=== PATIENT | female | born 1995 ===

== ENCOUNTER 2024-07-18 17:34 | Emergency (ER) | payer MEDICAID, SELFPAY ==
[2024-07-18 17:42] VITALS: BP 101/68; PULSE 81; RESP 18; TEMP 36.4; O2SAT 99
--- NOTE | 2024-07-18 19:47 | CRLHL7_ITS ---
For Patients: As a result of the Century Cures Act, medical imaging exams and procedure reports are released immediately into your electronic medical record. You may view this report before your referring provider. If you have questions, please contact your health care provider. INDICATION: Pelvic pain. TECHNIQUE: Transvaginal limited obstetric ultrasound examination of the pelvis was performed. Grayscale and color Doppler images were obtained. COMPARISON: None. FINDINGS: Uterus: Normal in echotexture. No suspicious masses. Endometrium: No significant endometrial free fluid. Intrauterine gestation: Yes. Mean sac diameter of 3.6 cm. cardiac activity: Yes. 196 bpm. [place]-rump length: 23 mm. Estimated gestational age of 9 weeks and 0 days. Yolk sac: Normal. Perigestational hemorrhage: No. Estimated sonographic due date: 02/20/2025. Right Ovary: Not visualized limiting its evaluation. Left ovary: Measures 4.3 x 2.9 x 3.0 cm. Simple appearing left ovarian follicle measuring 2.2 cm. No suspicious masses. Normal arterial and venous flow on color Doppler imaging. Cul-de-sac: Small amount of simple appearing pelvic free fluid within the cul-de-sac, possibly physiologic. IMPRESSION: Single viable intrauterine with estimated gestational age of 9 weeks and 0 days by crown-rump length, and estimated due date of 02/20/2025. Dictated by Maxi Moreland MD @ 07/18/2024 9:51:32 PM (Electronically Signed)
--- NOTE | 2024-07-18 19:58 | ED_ITS ---
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 This started earlier today and has gotten progressively worse. Pain in the upper abdomen predominantly in the center but also on the left side radiating to the back. Denies hematuria or dysuria. No vaginal bleeding discharge. Nausea but no vomiting although she says she has had nausea vomiting with prior pregnancies. No cough, chest pain, or shortness of breath. Has not taken anything for symptoms. Related Data Home Medications ?Medication ?Instructions ?Recorded ?Confirmed pren vit comb.1-iron cb-FA-DSS 90 tab PO 07/18/24 mg-1 mg-50 mg tablet Previous Rx's ?Medication ?Instructions ?Recorded famotidine 20 mg tablet (Pepcid) 20 mg PO BID #60 tabs 07/18/24 ondansetron 4 mg disintegrating 4 mg PO Q6H PRN nausea and 07/18/24 tablet vomiting #20 tabs Allergies Allergy/AdvReac Type Severity Reaction Status Date / Time No Known Drug Allergies Allergy Verified 07/18/24 17:51 PFSH PFSH Social History Smoking Status: Never smoker Do you use any of these nicotine containing products: None How often do you have a drink containing alcohol: never AUDIT-C Alcohol total score: 0 Non-prescribed substance use: denies use Exam Narrative: Exam Narrative: General: Well-developed and well-nourished, no acute distress Head: Atraumatic and normocephalic Eyes: Pupils are equal reactive, extraocular motions intact, conjunctiva clear ENT: External nose and ears are normal, posterior pharynx without erythema or exudate Neck: No midline cervical tenderness, full spontaneous range of motion the neck, trachea midline, no adenopathy Heart: Regular rate and rhythm no murmurs or thrills Lungs: Clear to auscultation bilaterally without wheezes or crackles Abdomen: Soft, diffuse upper abdominal tenderness worse in the epigastrium and left upper quadrant, nondistended with active bowel sounds Musculoskeletal: No tenderness, deformity, or edema Neurologic: Awake, alert, and oriented x3, no gross focal neurologic deficits, cranial nerves intact as tested Psych: Mood and affect are appropriate Skin: No rashes Const: Vital Signs, click to edit/add: Vital Signs - 24 hr 07/18/24 17:42 07/18/24 21:50 Temperature 97.5 F L Pulse Rate [Pulse Oximeter] 81 74 Respiratory Rate 18 16 Blood Pressure [Ri ght Upper Arm] 101/68 103/64 Pulse Oximetry 99 98 Oxygen Delivery Me thod Room Air Room Air Course Course ED Course: Patient seen examined, presents today with upper abdominal pain. She is approximately 8 weeks , has not had care yet. On exam here, epigastric and left upper quadrant tenderness along with mild right upper quadrant tenderness. Suspect gastritis, acute pancreatitis or choledocholithiasis also possible. Labs ordered along with right upper quadrant ultrasound, also pelvic ultrasound to verify intrauterine . Zofran, Pepcid, GI cocktail given in the emergency department. Reevaluation(s) Time of Reevaluation #1: 21:51 Reevaluation #1: Labs independently interpreted by me with elevated white blood cell count of 12.9, normal basic panel, elevated AST and ALT but normal bilirubin and normal lipase, urine with ketones and trace blood as well as bilirubin. Right upper quadrant ultrasound demonstrates gallbladder with sludge but no evidence for obstruction, no wall thickening or pericholecystic fluid to suggest acute cholecystitis. Ob ultrasound with intrauterine measuring 9 weeks with EDC 02/20/2025, left ovarian simple cyst but no other acute findings. Patient's symptoms today could be from biliary colic and passed to sludge, however also consider gastritis or mild enteritis. Acute appendicitis is clinically unlikely as there is no specific tenderness in the right abdomen. Patient will be started on Pepcid, Zofran, Tylenol, and follow up with primary care. If pain persists, consider referral to General surgery as well. Time of Reevaluation #2: 22:50 Reevaluation #2: Updated patient with findings and plan, she is feeling better, concerned that she is vomiting quite frequently and we discussed medications for this. Vital Signs Vital signs: Initial Vital Signs Temperature 97.5 F L 07/18/24 17:42 Temperature Source Temporal Artery Scan 07/18/24 17:42 Pulse Rate 81 07/18/24 17:42 Pulse Rhythm Regular 07/18/24 17:42 Pulse Strength 3+ Normal 07/18/24 17:42 Respiratory Rate 18 07/18/24 17:42 Blood Pressure 101/68 07/18/24 17:42 Blood Pressure Mean 79 07/18/24 17:42 Blood Pressure Position Sitting 07/18/24 17:42 Pulse Oximetry 99 07/18/24 17:42 Oxygen Delivery Method Room Air 07/18/24 17:42 Vital Signs Temperature 97.5 F L 07/18/24 17:42 Pulse Rate 81 07/18/24 17:42 Respiratory Rate 18 07/18/24 17:42 Blood Pressure 101/68 07/18/24 17:42 Pulse Oximetry 99 07/18/24 17:42 Oxygen Delivery Method Room Air 07/18/24 17:42 Temperature 97.5 F L 07/18/24 17:42 Pulse Rate 74 07/18/24 21:50 Respiratory Rate 16 07/18/24 21:50 Blood Pressure 103/64 07/18/24 21:50 Pulse Oximetry 98 07/18/24 21:50 Oxygen Delivery Method Room Air 07/18/24 21:50 Medications Administered Medications: Discontinued Medications Generic Name Dose Route Start Last Admin Trade Name Freq PRN Reason Stop Dose Admin Acetaminophen 1,000 mg 07/18/24 21:59 07/18/24 22:06 Acetaminophen 500 Mg Tablet PO 07/18/24 22:00 1,000 mg ONCE ONE Administration Famotidine 20 mg 07/18/24 20:01 07/18/24 20:14 Famotidine 10 Mg/Ml Inj IVP 07/18/24 20:02 20 mg ONCE ONE Administration Lidocaine/Aluminum/Magnesium/Simeth 30 ml 07/18/24 20:01 07/18/24 20:14 Gi Cocktail (Visc Lido/Antacid) 30 Ml PO 07/18/24 20:02 30 ml ONCE ONE Administration Lidocaine/Aluminum/Magnesium/Simeth 15 ml 07/18/24 22:10 07/18/24 22:17 Mag Hydrox/Aluminum Hyd/Simeth 30 Ml Oral.Susp PO 07/18/24 22:11 15 ml ONCE ONE Administration Ondansetron HCl 4 mg 07/18/24 20:01 07/18/24 20:14 Ondansetron 2 Mg/Ml Inj IVP 07/18/24 20:02 4 mg ONCE ONE Administration MDM - Abdominal Pain Lab Data Labs: Lab Results 07/18/24 07/18/24 07/18/24 Range/Units 19:51 19:51 19:51 WBC 12.89 H (4.50-11.00) K/uL RBC 4.58 (4.00-5.20) m/uL Hgb 13.6 (12.0-16.0) gm/dL Hct 40.2 (33.0-51.0) % MCV 88 (80-100) fL MCH 30 (26-34) pg MCHC 34 (32-36) gm/dL RDW Coeff of Luke 13.0 (11.5-15.5) % Plt Count 266 (140-440) K/uL Neut % (Auto) 84.8 H (42.0-72.0) % Lymph % (Auto) 10.9 L (20-44) % [place] % (Auto) 3.9 (0.0-11.0) % Eos % (Auto) 0.0 (0.0-7.0) % Baso % (Auto) 0.2 (0.0-3.0) % Neut # (Auto) 10.90 H (1.7-7.0) K/uL Lymph # (Auto) 1.40 (0.90-2.90) K/uL [place] # (Auto) 0.50 (0.00-0.90) K/UL Eos # (Auto) 0.00 (0.00-0.50) K/uL Baso # (Auto) 0.00 (0.00-0.30) K/uL Abs Immat Gran (auto) 0.00 (0.00-0.30) K/uL Imm/Tot Granulo (auto) 0.2 % Sodium 134 L (135-149) mmol/L Potassium 3.6 (3.6-5.1) mmol/L Chloride 104 (96-114) mmol/L Carbon Dioxide 21 (20-32) mmol/L Anion Gap 9 (7-15) mEq/L BUN 6 (5-24) mg/dL Creatinine 0.6 (0.5-1.5) mg/dL Estimated GFR 125 ml/min Glucose 95 (60-115) mg/dL Calcium 8.9 (8.4-10.6) mg/dL Total Bilirubin 0.7 Cancelled (0.1-1.5) mg/dL Direct Bilirubin 0.4 Cancelled (0.0-0.5) mg/dL AST 51 H (12-35) U/L ALT (4-35) U/L Alkaline Phosphatase (40-150) U/L Total Protein (6.0-8.3) g/dL Albumin (3.3-5.0) g/dL Lipase (23-300) U/L HCG, Quant mIU/mL Urine Color (Yellow) Urine Appearance (Clear) Urine pH (5.0-8.5) Ur Specific [place] (1.000-1.030) Urine Protein (Negative) Urine Glucose (UA) (Negative) Urine Ketones (Negative) Urine Blood (Negative) Urine Nitrite (Negative) Urine Bilirubin (Negative) Urine Urobilinogen (0.2-1.0) Ur Leukocyte Esterase (Negative) Urine RBC (0-2) Urine WBC (0-5) Ur Squamous Epith Cells (None-Few) Amorphous Sediment (None) Urine Bacteria (None) 07/18/24 07/18/24 07/18/24 Range/Units 19:51 19:51 19:51 WBC (4.50-11.00) K/uL RBC (4.00-5.20) m/uL Hgb (12.0-16.0) gm/dL Hct (33.0-51.0) % MCV (80-100) fL MCH (26-34) pg MCHC (32-36) gm/dL RDW Coeff of Luke (11.5-15.5) % Plt Count (140-440) K/uL Neut % (Auto) (42.0-72.0) % Lymph % (Auto) (20-44) % [place] % (Auto) (0.0-11.0) % Eos % (Auto) (0.0-7.0) % Baso % (Auto) (0.0-3.0) % Neut # (Auto) (1.7-7.0) K/uL Lymph # (Auto) (0.90-2.90) K/uL [place] # (Auto) (0.00-0.90) K/UL Eos # (Auto) (0.00-0.50) K/uL Baso # (Auto) (0.00-0.30) K/uL Abs Immat Gran (auto) (0.00-0.30) K/uL Imm/Tot Granulo (auto) % Sodium (135-149) mmol/L Potassium (3.6-5.1) mmol/L Chloride (96-114) mmol/L Carbon Dioxide (20-32) mmol/L Anion Gap (7-15) mEq/L BUN (5-24) mg/dL Creatinine (0.5-1.5) mg/dL Estimated GFR ml/min Glucose (60-115) mg/dL Calcium (8.4-10.6) mg/dL Total Bilirubin (0.1-1.5) mg/dL Direct Bilirubin (0.0-0.5) mg/dL AST Cancelled (12-35) U/L ALT 75 H Cancelled (4-35) U/L Alkaline Phosphatase 76 Cancelled (40-150) U/L Total Protein 7.5 (6.0-8.3) g/dL Albumin (3.3-5.0) g/dL Lipase (23-300) U/L HCG, Quant mIU/mL Urine Color (Yellow) Urine Appearance (Clear) Urine pH (5.0-8.5) Ur Specific [place] (1.000-1.030) Urine Protein (Negative) Urine Glucose (UA) (Negative) Urine Ketones (Negative) Urine Blood (Negative) Urine Nitrite (Negative) Urine Bilirubin (Negative) Urine Urobilinogen (0.2-1.0) Ur Leukocyte Esterase (Negative) Urine RBC (0-2) Urine WBC (0-5) Ur Squamous Epith Cells (None-Few) Amorphous Sediment (None) Urine Bacteria (None) 07/18/24 07/18/24 07/18/24 Range/Units 19:51 19:51 Unknown WBC (4.50-11.00) K/uL RBC (4.00-5.20) m/uL Hgb (12.0-16.0) gm/dL Hct (33.0-51.0) % MCV (80-100) fL MCH (26-34) pg MCHC (32-36) gm/dL RDW Coeff of Luke (11.5-15.5) % Plt Count (140-440) K/uL Neut % (Auto) (42.0-72.0) % Lymph % (Auto) (20-44) % [place] % (Auto) (0.0-11.0) % Eos % (Auto) (0.0-7.0) % Baso % (Auto) (0.0-3.0) % Neut # (Auto) (1.7-7.0) K/uL Lymph # (Auto) (0.90-2.90) K/uL [place] # (Auto) (0.00-0.90) K/UL Eos # (Auto) (0.00-0.50) K/uL Baso # (Auto) (0.00-0.30) K/uL Abs Immat Gran (auto) (0.00-0.30) K/uL Imm/Tot Granulo (auto) % Sodium (135-149) mmol/L Potassium (3.6-5.1) mmol/L Chloride (96-114) mmol/L Carbon Dioxide (20-32) mmol/L Anion Gap (7-15) mEq/L BUN (5-24) mg/dL Creatinine (0.5-1.5) mg/dL Estimated GFR ml/min Glucose (60-115) mg/dL Calcium (8.4-10.6) mg/dL Total Bilirubin (0.1-1.5) mg/dL Direct Bilirubin (0.0-0.5) mg/dL AST (12-35) U/L ALT (4-35) U/L Alkaline Phosphatase (40-150) U/L Total Protein Cancelled (6.0-8.3) g/dL Albumin 3.8 Cancelled (3.3-5.0) g/dL Lipase 60 (23-300) U/L HCG, Quant 851451.00 mIU/mL Urine Color [place] A (Yellow) Urine Appearance Cloudy A (Clear) Urine pH 5.5 (5.0-8.5) Ur Specific [place] >= 1.030 (1.000-1.030) Urine Protein 2+ A (Negative) Urine Glucose (UA) Negative (Negative) Urine Ketones 4+ A (Negative) Urine Blood Trace-lysed A (Negative) Urine Nitrite Negative (Negative) Urine Bilirubin 1+ A (Negative) Urine Urobilinogen 1.0 (0.2-1.0) Ur Leukocyte Esterase Negative (Negative) Urine RBC 0-2 (0-2) Urine WBC 0-2 (0-5) Ur Squamous Epith Cells None (None-Few) Amorphous Sediment Few A (None) Urine Bacteria None (None) Discharge Plan Discharge Clinical Impression: Intrauterine , Abdominal pain during , Biliary sludge determined by ultrasound, Nausea and vomiting during , Gastritis Patient Disposition: Home, Self-Care Condition: Stable Instructions: Biliary Colic (ED), GERD (Gastroesophageal Reflux Disease) (DC), Abdominal Pain in (ED), at 7 to 10 Weeks (ED) Additional Instructions: Take medication as prescribed Follow-up with your primary care doctor this week Activity Level: Activity as Tolerated Discharge Diet: Low Fat/Low Cholesterol Prescriptions: New ondansetron 4 mg tablet,disintegrating 4 mg PO Q6H PRN (Reason: nausea and vomiting) Qty: 20 0RF famotidine [Pepcid] 20 mg tablet 20 mg PO BID Qty: 60 2RF No Action pren vit comb.1-iron cb-FA-DSS 90-1-50 mg tablet PO Follow Up/Referrals: Provider,Not a Local [Primary Care Provider] - Stand Alone Forms: [email or web address] Info Instructions
[2024-07-18 20:01] LABS: Basophils Percent Auto 0.2 % (0.0-3.0); Hematocrit 40.2 % (33.0-51.0); Hemoglobin* 13.6 gm/dL (12.0-16.0); Immature Granulocytes Pct Auto 0.2 %; Lymphocytes Percent Auto 10.9 % (20-44); Mean Corpuscular HGB Conc 34 gm/dL (32-36); Mean Corpuscular Hemoglobin 30 pg (26-34); Mean Corpuscular Volume 88 fL (80-100); Monocytes Percent Auto 3.9 % (0.0-11.0); Neutrophils Percent Auto 84.8 % (42.0-72.0); Platelet Count* 266 K/uL (140-440); Red Blood Count 4.58 m/uL (4.00-5.20); White Blood Count* 12.89 K/uL (4.50-11.00)
--- NOTE | 2024-07-18 20:01 | CRLHL7_ITS ---
For Patients: As a result of the Cures Act, medical imaging exams and procedure reports are released immediately into your electronic medical record. You may view this report before your referring provider. If you have questions, please contact your health care provider. INDICATION: Upper abdominal pain, . TECHNIQUE: Ultrasound abdomen limited. Sonographic images of the right upper quadrant were obtained using [place]-scale and color Doppler images. COMPARISON: None. FINDINGS: Liver: Mildly echogenic liver parenchyma relative to the adjacent right renal cortex. No masses. No intrahepatic biliary dilatation. Gallbladder: Echogenic biliary sludge. No shadowing gallstones. Gallbladder wall thickness normal, measuring 3 mm. No pericholecystic fluid. Common bile duct: 5 mm. Pancreas: Unremarkable. Right kidney: Length 10.4 cm. Normal echotexture and cortex. No masses, stones, or hydronephrosis. Vasculature: Proximal abdominal aorta unremarkable. Main portal vein patent with normal flow toward the liver. IMPRESSION: 1. Biliary sludge with no additional imaging features of acute cholecystitis or abnormal biliary dilatation. 2. Likely mild degree of hepatic steatosis. Dictated by Gaston Louis MD @ 07/18/2024 9:44:30 PM Dictated by: Gaston Louis MD @ 07/18/2024 21:44:38 (Electronically Signed)
[2024-07-18] MEDS: ONDANSETRON 2 MG/ML inj 4 MG IVP (20:14)
[2024-07-18] MEDS: GI COCKTAIL (VISC LIDO/ANTACID) 30 ML PO (20:14)
[2024-07-18] MEDS: FAMOTIDINE 10 MG/ML inj 20 MG IVP (20:14)
[2024-07-18 20:18] LABS: Slide Review Reflex No
[2024-07-18 20:51] LABS: Albumin* 3.8 g/dL (3.3-5.0)
[2024-07-18 20:52] LABS: Chloride* 104 mmol/L (96-114); Potassium* 3.6 mmol/L (3.6-5.1)
[2024-07-18 20:54] LABS: Alanine Aminotransferase* 75 U/L (4-35); Aspartate Amino Transferase* 51 U/L (12-35); Blood Urea Nitrogen* 6 mg/dL (5-24); Carbon Dioxide* 21 mmol/L (20-32); Creatinine* 0.6 mg/dL (0.5-1.5); Estimated Glomerular Filt Rate 125 ml/min
[2024-07-18 20:55] LABS: Alkaline Phosphatase* 76 U/L (40-150); Anion Gap 9 mEq/L (7-15); Bilirubin Direct* 0.4 mg/dL (0.0-0.5); Bilirubin Total* 0.7 mg/dL (0.1-1.5); Calcium* 8.9 mg/dL (8.4-10.6); Glucose* 95 mg/dL (60-115); Lipase* 60 U/L (23-300); Sodium* 134 mmol/L (135-149); Total Protein* 7.5 g/dL (6.0-8.3)
[2024-07-18 21:27] LABS: Glucose Urine Negative (Negative); Leukocyte Esterase Urine Negative (Negative); Nitrite Urine Negative (Negative); RBC Urine 0-2 (0-2); Specific Gravity Urine >= 1.030 (1.000-1.030); WBC Urine 0-2 (0-5); pH Urine 5.5 (5.0-8.5)
[2024-07-18 21:28] LABS: Amorphous Sediment Urine Few
[2024-07-18 21:50] VITALS: BP 103/64; PULSE 74; RESP 16; O2SAT 98
[2024-07-18] MEDS: ACETAMINOPHEN 500 MG TABLET 1000 MG PO (22:06)
[2024-07-18] MEDS: MAG HYDROX/ALUMINUM HYD/SIMETH 30 ML ORAL.SUSP 15 ML PO (22:17)
[2024-07-18 22:54] LABS: Appearance Urine Cloudy (Clear); Bilirubin Urine 1+ (Negative); Blood Urine Trace-lysed (Negative); Color Urine Amber (Yellow); Ketones Urine 4+ (Negative); Protein Urine 2+ (Negative)
== END 2024-07-18 23:22 | disposition home or self-care (01) ==
PROVIDERS: Emergency Provider Family Medicine
DX: O21.9 Vomiting of pregnancy, unspecified (principal); R10.9 Unspecified abdominal pain; K83.8 Other specified diseases of biliary tract; K29.70 Gastritis, unspecified, without bleeding; Z3A.08 8 weeks gestation of pregnancy
CPT/HCPCS: 36415; 76705; 76817; 80048; 80076; 81001; 83690; 84702; 85025; 96374; 96375; 99284; A9270; J2405; S0028

== ENCOUNTER 2024-08-15 11:56 | Emergency (ER) | payer MEDICAID, SELFPAY ==
[2024-08-15] VITALS (15 sets, daily range): BP systolic 87–108; BP diastolic 52–77; PULSE 67–89; RESP 16; TEMP 36.4; O2SAT 98–100
--- NOTE | 2024-08-15 13:05 | ED_ITS ---
HPI - General Adult General Chief complaint: Syncope/Fainted Stated complaint: fainted/weakness - 12wks Time Seen by Provider: 08/15/24 13:05 History of Present Illness HPI narrative: Stated she blacked out this morning, having pain in left side of back and head, before she backed out, she felt tight in her chest, sob, felt like she could not breathe well, vision went magaña/black, went into a cold sweat in face and hands. Does not remember anything after but woke up on the ground, was found by a [place] man. Was standing with her kids waiting for the bus to arrive. Has been vomiting, ran out of the anti nausea medication that was prescribed . Has been keeping liquids down. Third , dx with hyperemesis in Jul, also told she has an inflamed gallbladder at that time. 29-year-old woman presenting to the emergency department following an apparent s yncopal event. Was with her 3-year-old and 5-year-old at the bus stop. She has a text to her 6-8 minutes before she interacted with her phone again. The kids apparently said she looked like she was asleep. No history of seizures. Is being seen about 4 hours after this event. Seen in this department with mildly elevated transaminases and biliary sludge ?inflamed liver? she says really 1 month ago. Has continued to have pain in this area she says. She does not recall an attack of pain before this syncopal event. She does not have headaches. Feels some blurriness of vision around vomiting. Pain in right upper abdomen appears to escalate with the vomiting as well but does not clearly appear to be the reason for nausea. The pain can be triggered by food. No palpitations or irregular heartbeat that she was aware of. Upon discharge last month was given famotidine and Zofran Related Data Home Medications ?Medication ?Instructions ?Recorded ?Confirmed pren vit comb.1-iron cb-FA-DSS 90 tab PO 07/18/24 mg-1 mg-50 mg tablet Previous Rx's ?Medication ?Instructions ?Recorded famotidine 20 mg tablet (Pepcid) 20 mg PO BID #60 tabs 07/18/24 ondansetron 4 mg disintegrating 4 mg PO Q6H PRN nausea and 07/18/24 tablet vomiting #20 tabs ondansetron 4 mg disintegrating 4 mg PO Q4-6H PRN nausea and 08/15/24 tablet vomiting #20 tabs Allergies Allergy/AdvReac Type Severity Reaction Status Date / Time No Known Drug Allergies Allergy Verified 08/15/24 12:32 Review of Systems Status of ROS: Reports: 6 or more systems reviewed and unremarkable except as noted in History and below PFSH PFS Social History Smoking Status: Never smoker Do you use any of these nicotine containing products: None How often do you have a drink containing alcohol: never AUDIT-C Alcohol total score: 0 Non-prescribed substance use: denies use Exam Narrative: Exam Narrative: Pleasant. NAD. Cranial nerves 2-12 intact. There is no nystagmus. Pupils are equal and brisk. Head is atraumatic. Neck is supple nontender. Back nontender. Lungs are clear heart in regular rate and rhythm. Abdomen is soft nontender Extremities are well perfused without edema. Moving all extremities without difficulty and with good strength. Const: Vital Signs, click to edit/add: Vital Signs - 24 hr 08/15/24 12:23 08/15/24 13:25 08/15/24 13:26 Temperature 97.5 F L Pulse Rate 75 86 Pulse Rate [Pulse Oximeter] 89 Pulse Rate [orthos tatic sitting] Pulse Rate [orthos tatic standing] Respiratory Rate 16 Blood Pressure 96/67 Blood Pressure [Ri ght Upper Arm] 98/62 Blood Pressure [or thostatic lying] Blood Pressure [or thostatic sitting] Blood Pressure [or thostatic standing ] Pulse Oximetry 98 99 99 Oxygen Delivery Ny thod Room Air 08/15/24 13:27 08/15/24 13:30 08/15/24 13:31 Temperature Pulse Rate 74 77 79 Pulse Rate [Pulse Oximeter] Pulse Rate [orthos tatic sitting] Pulse Rate [orthos tatic standing] Respiratory Rate Blood Pressure 94/58 L 97/68 Blood Pressure [Ri ght Upper Arm] Blood Pressure [or thostatic lying] Blood Pressure [or thostatic sitting] Blood Pressure [or thostatic standing ] Pulse Oximetry 100 99 99 Oxygen Delivery Me thod 08/15/24 13:45 08/15/24 13:58 08/15/24 13:59 Temperature Pulse Rate 76 80 Pulse Rate [Pulse Oximeter] Pulse Rate [orthos tatic sitting] Pulse Rate [orthos tatic standing] Respiratory Rate Blood Pressure 100/57 L 108/73 Blood Pressure [Ri ght Upper Arm] Blood Pressure [or thostatic lying] Blood Pressure [or thostatic sitting] Blood Pressure [or thostatic standing ] Pulse Oximetry 100 [facility] 14:00 08/15/24 14:15 08/15/24 14:15 Temperature Pulse Rate 79 Pulse Rate [Pulse Oximeter] 78 Pulse Rate [orthos tatic sitting] 67 Pulse Rate [orthos tatic standing] 83 Respiratory Rate Blood Pressure 100/73 Blood Pressure [Ri ght Upper Arm] Blood Pressure [or thostatic lying] 100/54 L Blood Pressure [or thostatic sitting] 108/77 Blood Pressure [or thostatic standing ] 100/73 Pulse Oximetry 100 [facility] 08/15/24 14:30 08/15/24 14:32 08/15/24 14:39 Temperature Pulse Rate 72 71 79 Pulse Rate [Pulse Oximeter] Pulse Rate [orthos tatic sitting] Pulse Rate [orthos tatic standing] Respiratory Rate 16 Blood Pressure 87/52 L 92/60 Blood Pressure [Ri ght Upper Arm] Blood Pressure [or thostatic lying] Blood Pressure [or thostatic sitting] Blood Pressure [or thostatic standing ] Pulse Oximetry 100 100 100 [facility] 08/15/24 16:21 Temperature Pulse Rate Pulse Rate [Pulse Oximeter] 78 Pulse Rate [orthos tatic sitting] Pulse Rate [orthos tatic standing] Respiratory Rate 16 Blood Pressure Blood Pressure [Ri ght Upper Arm] 99/56 L Blood Pressure [or thostatic lying] Blood Pressure [or thostatic sitting] Blood Pressure [or thostatic standing ] Pulse Oximetry [facility] Documenting provider has reviewed patient's vital signs: yes Course Vital Signs Vital signs: Initial Vital Signs Temperature 97.5 F L 08/15/24 12:23 Temperature Source Temporal Artery Scan 08/15/24 12:23 Pulse Rate 89 08/15/24 12:23 Respiratory Rate 16 08/15/24 12:23 Blood Pressure 98/62 08/15/24 12:23 Blood Pressure Mean 74 08/15/24 12:23 Blood Pressure Position Sitting 08/15/24 12:23 Pulse Oximetry 98 08/15/24 12:23 Oxygen Delivery Method Room Air 08/15/24 12:23 Vital Signs Temperature 97.5 F L 08/15/24 12:23 Pulse Rate 89 08/15/24 12:23 Respiratory Rate 16 08/15/24 12:23 Blood Pressure 98/62 08/15/24 12:23 Pulse Oximetry 98 08/15/24 12:23 Oxygen Delivery Method Room Air 08/15/24 12:23 Temperature 97.5 F L 08/15/24 12:23 Pulse Rate 78 08/15/24 16:21 Respiratory Rate 16 08/15/24 16:21 Blood Pressure 99/56 L 08/15/24 16:21 Pulse Oximetry 100 08/15/24 14:39 Oxygen Delivery Method Room Air 08/15/24 12:23 Medications Administered Medications: Discontinued Medications Generic Name Dose Route Start Last Admin Trade Name Freq PRN Reason Stop Dose Admin Sodium Chloride 1,000 mls @ 1,000 mls/hr 08/15/24 13:16 08/15/24 14:25 0.9 % Sodium Chloride 1000 Ml IV 08/15/24 14:15 Infused .Q1H ONE Infusion Ondansetron HCl 4 mg 08/15/24 13:16 08/15/24 13:48 Ondansetron Odt 4 Mg Tab PO 08/15/24 13:17 4 mg ONCE ONE Administration Medical Decision Making MDM Narrative Medical decision making narrative: Would evaluate for evidence of cardiac dysrhythmia. Otherwise it appears that repeated vomiting and possibly a vasovagal event would be contributing here. Does not has symptoms consistent with intracranial abnormality. No regular headaches and no persistent visual changes. She is asymptomatic in her head at this time. Initiating IV fluids and was given a dose of Zofran. Orthostatics done in the middle of IV fluid bolus were WNL. Discussed limited abdominal ultrasound findings with building equipment operator. INDICATION: Right upper quadrant pain TECHNIQUE: Ultrasound abdomen limited. Sonographic images of the right upper quadrant were obtained using arredondo-scale and color Doppler images. COMPARISON: Right upper quadrant ultrasound July 18, 2024 FINDINGS: Liver: Normal in size and echotexture. No masses. No intrahepatic biliary dilatation. Gallbladder: Multiple gallbladder stones are present. No sign of gallbladder wall thickening or pericholecystic fluid. Common bile duct: 4 mm. Pancreas: Obscured by bowel gas. Right kidney: Normal in size. Normal echotexture and cortex. No masses, stones, or hydronephrosis. Vasculature: Proximal abdominal aorta and IVC are normal. IMPRESSION: Cholelithiasis without further evidence of cholecystitis. The remainder of the exam is unremarkable. EKG and labs are reassuring other than ketones in urine not consistent with repeated vomiting. Urinalysis otherwise I would say would be potentially contaminated and would wait for culture results. On reassessment is significantly improved. She feels like she can go home. Did discuss this case with General surgery. Anticipate follow-up with them outpatient. Will try to arrange. See patient discharge plan for further discussion Continue to focus on hydration. I believe some appointments have been made for you for OB. Please follow-up with these. Please call to General surgery Clinic for an appointment to discuss your gallbladder. By now you probably know what foods tend to cause more discomfort; try to avoid these. Higher fat/grease-containing foods might cause more trouble. Sending in a prescription for nausea medication -- Zofran Otherwise return or for marked increase in persistent pain, intractable vomiting, fever. We will also culture your urine and will call you if it appears to require treatment. Contin?e concentr?ndose en la hidrataci?n. Creo que ya le willis programado algunas citas para el examen de obstetricia. Por favor, dionte un seguimiento de las mismas. Por favor, llame a la Cl?gayla de Cir[facility] General para programar myron ignacio para hablar sobre mayers ves?cula biliar. A esta altura, probablemente ya sepa qu? alimentos tienden a causar m?s molestias; trate de evitarlos. Los alimentos con mayor contenido de grasas pueden causar m?s problemas. Enviar myron receta para un medicamento contra las n?useas: Zofran De lo contrario, regrese o si hay un aumento marcado del dolor persistente, v?mitos intratables, fiebre. Tambi?n haremos un cultivo de orina y lo llamaremos si parece que requiere tratamiento. Medical Records Medical records reviewed: Yes I reviewed the patient's medical records Lab Data Lab results reviewed: Yes I reviewed the patient's lab results Labs: Lab Results 08/15/24 08/15/24 08/15/24 Range/Units 13:20 13:32 14:22 WBC 6.23 (4.50-11.00) K/uL RBC 4.26 (4.00-5.20) m/uL Hgb 12.6 (12.0-16.0) gm/dL Hct 36.9 (33.0-51.0) % MCV 87 (80-100) fL MCH 30 (26-34) pg MCHC 34 (32-36) gm/dL RDW Coeff of Luke 12.7 (11.5-15.5) % Plt Count 214 (140-440) K/uL Neut % (Auto) 74.6 H (42.0-72.0) % Lymph % (Auto) 19.7 L (20-44) % [place] % (Auto) 5.0 (0.0-11.0) % Eos % (Auto) 0.2 (0.0-7.0) % Baso % (Auto) 0.3 (0.0-3.0) % Neut # (Auto) 4.60 (1.7-7.0) K/uL Lymph # (Auto) 1.20 (0.90-2.90) K/uL [place] # (Auto) 0.30 (0.00-0.90) K/UL Eos # (Auto) 0.01 (0.00-0.50) K/uL Baso # (Auto) 0.02 (0.00-0.30) K/uL Abs Immat Gran (auto) 0.01 (0.00-0.30) K/uL Imm/Tot Granulo (auto) 0.2 % Sodium 133 L (135-149) mmol/L Potassium 3.6 (3.6-5.1) mmol/L Chloride 105 (96-114) mmol/L Carbon Dioxide 21 (20-32) mmol/L Anion Gap 7 (7-15) mEq/L BUN 5 (5-24) mg/dL Creatinine 0.4 L (0.5-1.5) mg/dL Estimated GFR 138 ml/min Glucose 95 (60-115) mg/dL Calcium 8.9 (8.4-10.6) mg/dL Total Bilirubin 0.6 (0.1-1.5) mg/dL Direct Bilirubin 0.2 (0.0-0.5) mg/dL AST 24 (12-35) U/L ALT 23 (4-35) U/L Alkaline Phosphatase 47 (40-150) U/L Total Protein 6.6 (6.0-8.3) g/dL Albumin 3.5 (3.3-5.0) g/dL Urine Color Yellow (Yellow) Urine Appearance Slightly Cloudy A (Clear) Urine pH 6.5 (5.0-8.5) Ur Specific [place] 1.020 (1.000-1.030) Urine Protein Negative (Negative) Urine Glucose (UA) Negative (Negative) Urine Ketones 4+ A (Negative) Urine Blood Negative (Negative) Urine Nitrite Negative (Negative) Urine Bilirubin Negative (Negative) Urine Urobilinogen 1.0 (0.2-1.0) Ur Leukocyte Esterase 1+ A (Negative) Urine RBC 0-2 (0-2) Urine WBC 5-10 A (0-5) Ur Squamous Epith Cells Moderate A (None-Few) Urine Bacteria Moderate A (None) Urine Mucus Few A (None) SARS-CoV-2 (PCR) Negative SARS-CoV-2 (Negative) Influenza Type A (PCR) Negative PCR FLU A (Negative) Influenza Type B (PCR) Negative PCR FLU B (Negative) RSV (PCR) Negative PCR RSV (Negative) ECG Data Attestation: I personally reviewed and interpreted this ECG as follows: (Normal sinus at 91) Discharge Plan Discharge Clinical Impression: Vasovagal syncope, Dehydration, Cholelithiasis, Right upper quadrant abdominal pain Patient Disposition: Home w/ Parent or Adult Condition: Improved Additional Instructions: Continue to focus on hydration. I believe some appointments have been made for you for OB. Please follow-up with these. Please call to General surgery Clinic for an appointment to discuss your gallbladder. By now you probably know what foods tend to cause more discomfort; try to avoid these. Higher fat/grease-containing foods might cause more trouble. Sending in a prescription for nausea medication -- Zofran Otherwise return or for marked increase in persistent pain, intractable vomiting, fever. We will also culture your urine and will call you if it appears to require treatment. Contin?e concentr?ndose en la hidrataci?n. Creo que ya le willis programado algunas citas para el examen de obstetricia. Por favor, dionte un seguimiento de las mismas. Por favor, llame a la Cl?gayla de Cirug?a General para programar myron ignacio para hablar sobre mayers ves?cula biliar. A esta altura, probablemente ya sepa qu? alimentos tienden a causar m?s molestias; trate de evitarlos. Los alimentos con mayor contenido de grasas pueden causar m?s problemas. Enviar myron receta para un medicamento contra las n?useas: Zofran De lo contrario, regrese o si hay un aumento marcado del dolor persistente, v?mitos intratables, fiebre. Tambi?n haremos un cultivo de orina y lo llamaremos si parece que requiere tratamiento. Prescriptions: New ondansetron 4 mg tablet,disintegrating 4 mg PO Q4-6H PRN (Reason: nausea and vomiting) Qty: 20 0RF No Action pren vit comb.1-iron cb-FA-DSS 90-1-50 mg tablet PO ondansetron 4 mg tablet,disintegrating 4 mg PO Q6H PRN (Reason: nausea and vomiting) Qty: 20 0RF famotidine [Pepcid] 20 mg tablet 20 mg PO BID Qty: 60 2RF Follow Up/Referrals: Provider,Not a Local [Primary Care Provider] - Stand Alone Forms: [facility] Info Instructions
--- NOTE | 2024-08-15 13:16 | CRLHL7_ITS ---
For Patients: As a result of the Century Cures Act, medical imaging exams and procedure reports are released immediately into your electronic medical record. You may view this report before your referring provider. If you have questions, please contact your health care provider. INDICATION: Right upper quadrant pain TECHNIQUE: Ultrasound abdomen limited. Sonographic images of the right upper quadrant were obtained using arredondo-scale and color Doppler images. COMPARISON: Right upper quadrant ultrasound July 18, 2024 FINDINGS: Liver: Normal in size and echotexture. No masses. No intrahepatic biliary dilatation. Gallbladder: Multiple gallbladder stones are present. No sign of gallbladder wall thickening or pericholecystic fluid. Common bile duct: 4 mm. Pancreas: Obscured by bowel gas. Right kidney: Normal in size. Normal echotexture and cortex. No masses, stones, or hydronephrosis. Vasculature: Proximal abdominal aorta and IVC are normal. IMPRESSION: Cholelithiasis without further evidence of cholecystitis. The remainder of the exam is unremarkable. Dictated by Sukumar Llanos MD @ 08/15/2024 2:28:36 PM (Electronically Signed)
[2024-08-15] MEDS: 0.9 % SODIUM CHLORIDE 1000 ml 1,000 ML IV (13:25)
[2024-08-15 13:41] LABS: Basophils Absolute Auto 0.02 K/uL (0.00-0.30); Basophils Percent Auto 0.3 % (0.0-3.0); Eosinophils Absolute Auto 0.01 K/uL (0.00-0.50); Eosinophils Percent Auto 0.2 % (0.0-7.0); Hematocrit 36.9 % (33.0-51.0); Hemoglobin* 12.6 gm/dL (12.0-16.0); Immature Granulocytes Abs Auto 0.01 K/uL (0.00-0.30); Immature Granulocytes Pct Auto 0.2 %; Lymphocytes Percent Auto 19.7 % (20-44); Mean Corpuscular HGB Conc 34 gm/dL (32-36); Mean Corpuscular Hemoglobin 30 pg (26-34); Mean Corpuscular Volume 87 fL (80-100); Neutrophils Percent Auto 74.6 % (42.0-72.0); Platelet Count* 214 K/uL (140-440); RDW Coefficient of Variation % 12.7 % (11.5-15.5); Red Blood Count 4.26 m/uL (4.00-5.20); White Blood Count* 6.23 K/uL (4.50-11.00)
[2024-08-15 13:42] LABS: Slide Review Reflex No
[2024-08-15] MEDS: ONDANSETRON ODT 4 MG TAB PO (13:48)
[2024-08-15 13:50] LABS: Albumin* 3.5 g/dL (3.3-5.0); Chloride* 105 mmol/L (96-114); Potassium* 3.6 mmol/L (3.6-5.1); Sodium* 133 mmol/L (135-149)
[2024-08-15 13:52] LABS: Anion Gap 7 mEq/L (7-15); Carbon Dioxide* 21 mmol/L (20-32); Creatinine* 0.4 mg/dL (0.5-1.5); Estimated Glomerular Filt Rate 138 ml/min
[2024-08-15 13:53] LABS: Alanine Aminotransferase* 23 U/L (4-35); Alkaline Phosphatase* 47 U/L (40-150); Aspartate Amino Transferase* 24 U/L (12-35); Bilirubin Direct* 0.2 mg/dL (0.0-0.5); Bilirubin Total* 0.6 mg/dL (0.1-1.5); Blood Urea Nitrogen* 5 mg/dL (5-24); Calcium* 8.9 mg/dL (8.4-10.6); Glucose* 95 mg/dL (60-115); Total Protein* 6.6 g/dL (6.0-8.3)
[2024-08-15 14:35] LABS: Appearance Urine Slightly Cloudy (Clear); Bilirubin Urine Negative (Negative); Blood Urine Negative (Negative); Color Urine Yellow (Yellow); Glucose Urine Negative (Negative); Ketones Urine 4+ (Negative); Leukocyte Esterase Urine 1+ (Negative); Nitrite Urine Negative (Negative); Protein Urine Negative (Negative); pH Urine 6.5 (5.0-8.5)
[2024-08-15 14:48] LABS: Bacteria Urine Moderate; Mucus Urine Few; RBC Urine 0-2 (0-2); Squamous Epithelial Cell Urine Moderate (None-Few)
[2024-08-15 14:52] LABS: PCR FLU A Negative PCR FLU A (Negative); PCR FLU B Negative PCR FLU B (Negative); PCR RSV Negative PCR RSV (Negative); SARS PCR* Negative SARS-CoV-2 (Negative)
== END 2024-08-15 16:22 | disposition home or self-care (01) ==
PROVIDERS: Emergency Provider Family Medicine
DX: K80.20 Calculus of gallbladder without cholecystitis without obstruction (principal); E86.0 Dehydration
CPT/HCPCS: 36415; 76705; 80048; 80076; 81001; 85025; 87086; 87631; 99284; T1013; A9270; J7030

== ENCOUNTER 2024-08-22 16:44 | Outpatient (CLI) | payer MEDICAID, SELFPAY ==
--- NOTE | 2024-08-22 16:45 | CRLHL7_ITS ---
For Patients: As a result of the Century Cures Act, medical imaging exams and procedure reports are released immediately into your electronic medical record. You may view this report before your referring provider. If you have questions, please contact your health care provider. INDICATION: dating and viability COMPARISON: 07/18/2024 TECHNIQUE: Real-time arredondo-scale imaging of the pelvis was performed. FINDINGS: heart rate 157 beats per minute. Sonographic gestational age 14 weeks 4 days and sonographic due date of 02/16/2025. BPD 2.7 cm, 14 weeks 6 days, 97th percentile. HC 10.3 cm, 14 weeks 6 days, 97th percentile. AC 8.4 cm, 14 weeks 5 days, 95th percentile. FL 1.4 cm, 14 weeks 0 days, 78th percentile. IMPRESSION: Gestational age calculated at 14 weeks 4 days with a sonographic due date of 02/16/2025. Dictated by Javon Villavicencio MD @ 08/23/2024 12:55:29 PM (Electronically Signed)
== END 2024-08-22 16:45 | disposition home or self-care (01) ==
LOC: US 16:44
PROVIDERS: Visit Provider Registered Nurse
DX: Z34.92 Encounter for supervision of normal pregnancy, unspecified, second trimester (principal); Z3A.14 14 weeks gestation of pregnancy
CPT/HCPCS: 76815; T1013

== ENCOUNTER 2024-08-23 14:12 | Outpatient (CLI) | payer MEDICAID, SELFPAY ==
[2024-08-23 21:54] LABS: Chlamydia DNA Amplified* NOT DETECTED (No Detected); GC DNA Amplified* NOT DETECTED (No Detected)
[2024-08-31 05:48] LABS: HPV Source Cervix; HPV, High Risk by TMA Not Detected
== END 2024-08-23 14:13 | disposition home or self-care (01) ==
PROVIDERS: Visit Provider Registered Nurse
DX: Z34.92 Encounter for supervision of normal pregnancy, unspecified, second trimester (principal); Z3A.14 14 weeks gestation of pregnancy
CPT/HCPCS: 83020; 83021; 85660; 86592; 86703; 86704; 86706; 86762; 86787; 86803; 86850; 86900; 86901; 87086; 87340; 87491; 87591; 87624; 87625; 88141; 88142

== ENCOUNTER 2024-09-04 11:44 | Day surgery (SDC) | payer MEDICAID, SELFPAY ==
[2024-09-04] VITALS (12 sets, daily range): BP systolic 89–109; BP diastolic 50–64; PULSE 70–110; RESP 14–16; TEMP 36.3–36.6; O2SAT 96–100; BMI 25.9
--- NOTE | 2024-09-04 12:08 | SUR.PREOP ---
OB RN in room to do heart tones. Reported FHT 140s-150s
[2024-09-04] MEDS: LACTATED RINGERS 1000 ML 1,000 ML 100 ML IV ×2 (12:10→13:27)
--- NOTE | 2024-09-04 12:11 | SUR.PREOP ---
RN was called to pt bedside to do preoperative heart tones. FHR was audible at 145-152 no audible decelerations noted. FHR was listening to for 45 seconds. Pt is 15 weeks .
[2024-09-04] MEDS: SODIUM CHLORIDE 0.9 % (FLUSH) 10 ML SYRINGE IVF (12:15)
--- NOTE | 2024-09-04 12:44 | W.PM.H&PU ---
History & Physical Update History & Physical Update H&P Reviewed and patient assessed: No changes noted
[2024-09-04] MEDS: CEFAZOLIN 2 GM INJ IVP (13:05)
[2024-09-04] MEDS: BUPIVACAINE 0.5% 30 ML INJECTION (13:50)
--- NOTE | 2024-09-04 14:06 | PM.GSPRC ---
Operative Note Date of procedure: 09/04/24 Pre-op diagnosis: biliary colic Post-op diagnosis: same Type of Procedure: laparoscopic cholecystectomy Indications: Patient is a 29-year-old female, currently in the 2nd trimester, who presented to clinic with clinical workup and symptoms consistent with biliary colic versus chronic cholecystitis. Different treatment options were discussed, including observation with patient electing to proceed with operative intervention. Risks and benefits of operative intervention were discussed at length with the patient. Risks included but was not limited to: Bleeding, infection, risk of damage to surrounding structures, possible need for additional procedures, [possible need to convert to an open operation] and postoperative complications such as pneumonia, pulmonary emboli or NH. All questions and concerns were addressed with the patient agreeing to proceed. Procedure Description: After discussing the risks and benefits of the procedure, the patient signed informed consent.? The operative site was marked and the patient was brought to the operating room and placed on the operating table in supine position.? Care was taken to pad the patient's pressure points.?? The patient was then intubated by anesthesia.?? The operative site was then prepped and draped in the usual sterile fashion.? A time-out was then performed. Entrance to the abdomen was gained via a 5 mm Visiport in the left upper quadrant. The abdomen was insufflated and briefly surveyed for signs of injury. There was none. The uterus was consistent with a current , within the pelvis and outside the operative field. An 11 mm umbilical port was placed as well as 2 working ports along the right costal margin. Patient was then placed in reverse Trendelenburg position with the right side up. The gallbladder fundus was grasped and retracted cephalad. The infundibulum was grasped. A combination of hook cautery and blunt dissection was used to carefully dissect out the cystic duct and artery until they could clearly be seen entering the gallbladder without any intervening structures. The gallbladder was dissected off the cystic plate to achieve the critical view. Once this was achieved the cystic duct and artery were each clipped with 2 clips proximally and 1 clip distally and transected with the scissors. The gallbladder was then taken off of the liver bed. A large posterior vessel high on the body of the gallbladder was seen, this was clipped with 2 clips proximallt, 1 cip distally and transected. The gallbladder was then completely taken off of the liver bed and removed from the abdomen using an Endo-Catch bag. The gallbladder bed was surveyed for hemostasis and excellent. The ports were then removed under direct vision. The umbilical port fascia was closed with 0 Vicryl. The skin was closed with absorbable subcuticular suture. Instrument sponge and needle counts were correct at the end of the case. The patient was then woken and transferred to the PACU in stable condition. Findings: Normal appearing gallbladder Anesthesia: GETA Surgeon: Unique Olivier MD Estimated blood loss (mL): 5 Specimen: Gallbladder Condition: stable Disposition: PACU
--- NOTE | 2024-09-04 14:12 | P.ANES_ITS ---
Anesthesia Charges Start Date/Time Anesthesia Start Date: 09/04/24 Anesthesia Start Time: 12:50 Stop Date/Time Anesthesia Stop Date: 09/04/24 Anesthesia Stop Time: 14:09 Coding CPT Codes CPT Codes: ANESTH SURG UPPER ABDOMEN - 79309 ([id number]) P2 - PATIENT W/MILD SYST DISEASE, QX - ORGAN GRINDER SVC W/ MD MED DIRECTION, QK - HOME HEALTH CLINICIAN 2-4 CNCRNT ANES PROC
--- NOTE | 2024-09-04 14:12 | W.ANESCHARGE ---
Anesthesia Charges Start Date/Time Anesthesia Start Date: 09/04/24 Anesthesia Start Time: 12:50 Stop Date/Time Anesthesia Stop Date: 09/04/24 Anesthesia Stop Time: 14:09 Coding CPT Codes CPT Codes: ANESTH SURG UPPER ABDOMEN - 71126 ([id number]) P2 - PATIENT W/MILD SYST DISEASE, QX - CAREER SERVICES COORDINATOR SVC W/ MD MED DIRECTION, QK - BAKER BREAD 2-4 CNCRNT ANES PROC
--- NOTE | 2024-09-04 14:19 | SUR.PHASEI ---
FHR doptones completed in PACU. 140-145
[2024-09-04] MEDS: HYDROCODONE-ACETAMIN 5-325 MG 1 TAB PO (14:48)
--- NOTE | 2024-09-04 15:05 | P.ANES_ITS ---
Anesthesia Charges Start Date/Time Anesthesia Start Date: 09/04/24 Anesthesia Start Time: 12:50 Stop Date/Time Anesthesia Stop Date: 09/04/24 Anesthesia Stop Time: 14:09 Coding CPT Codes CPT Codes: ANESTH SURG UPPER ABDOMEN - 17114 ([id number]) QK - RECEIVING MANAGER 2-4 CNCRNT ANES PROC, QX - PRICING COORDINATOR SVC W/ MD MED DIRECTION, P2 - PATIENT W/MILD SYST DISEASE
--- NOTE | 2024-09-04 15:05 | W.ANESCHARGE ---
Anesthesia Charges Start Date/Time Anesthesia Start Date: 09/04/24 Anesthesia Start Time: 12:50 Stop Date/Time Anesthesia Stop Date: 09/04/24 Anesthesia Stop Time: 14:09 Coding CPT Codes CPT Codes: ANESTH SURG UPPER ABDOMEN - 82495 ([id number]) QK - DRAG SEINER 2-4 CNCRNT ANES PROC, QX - FOOD AND NUTRITION TEACHER SVC W/ MD MED DIRECTION, P2 - PATIENT W/MILD SYST DISEASE
== END 2024-09-04 15:47 | disposition home or self-care (01) ==
PROVIDERS: PCP Registered Nurse; Visit Provider Surgery
PROC: 0FT44ZZ Resection of Gallbladder, Percutaneous Endoscopic Approach (ICD-10-PCS; CPT 47562; principal; 2024-09-04 13:00)
DX: K81.1 Chronic cholecystitis (principal)
CPT/HCPCS: 47562; 00790; 88304; T1013; A9270; J0330; J0665; J0690; J1100; J1200; J2250; J2371; J2405; J2704; J2710; J2765; J3010; J7120

== ENCOUNTER 2024-10-05 13:04 | Outpatient (CLI) | payer MEDICAID, SELFPAY | END 2024-10-05 13:05 | disposition home or self-care (01) | PROVIDERS: PCP Registered Nurse; Visit Provider Obstetrics & Gynecology | DX: Z34.92 Encounter for supervision of normal pregnancy, unspecified, second trimester (principal); Z3A.20 20 weeks gestation of pregnancy | CPT/HCPCS: 76805; J1171 ==

== ENCOUNTER 2024-11-15 09:31 | Outpatient (CLI) | payer MEDICAID, SELFPAY | END 2024-11-15 09:32 | disposition home or self-care (01) | LOC: US 09:32 | PROVIDERS: PCP Registered Nurse; Visit Provider Obstetrics & Gynecology | DX: O26.892 Other specified pregnancy related conditions, second trimester (principal); N28.89 Other specified disorders of kidney and ureter; Q63.2 Ectopic kidney; Z3A.26 26 weeks gestation of pregnancy | CPT/HCPCS: 76811; T1013 ==

== ENCOUNTER 2024-12-01 11:15 | Outpatient (CLI) | payer MEDICAID, SELFPAY | END 2024-12-01 11:16 | disposition home or self-care (01) | LOC: NFLDREF 12-04 03:58 | PROVIDERS: PCP Registered Nurse; Referring Provider Registered Nurse; Visit Provider Obstetrics & Gynecology | DX: Z34.83 Encounter for supervision of other normal pregnancy, third trimester (principal) | CPT/HCPCS: 86592 ==

== ENCOUNTER 2024-12-27 12:46 | Outpatient (CLI) | payer MEDICAID, SELFPAY | END 2024-12-27 12:47 | disposition home or self-care (01) | PROVIDERS: PCP Registered Nurse; Visit Provider Obstetrics & Gynecology | DX: O35.EXX0 Maternal care for other (suspected) fetal abnormality and damage, fetal genitourinary anomalies, not applicable or unspecified (principal); Z3A.32 32 weeks gestation of pregnancy | CPT/HCPCS: 76816; T1013 ==

== ENCOUNTER 2025-01-12 12:40 | Outpatient (CLI) | payer MEDICAID, SELFPAY | END 2025-01-12 12:41 | disposition home or self-care (01) | LOC: NFLDREF 01-13 10:32 | PROVIDERS: PCP Registered Nurse; Referring Provider Registered Nurse; Visit Provider Obstetrics & Gynecology | DX: Z34.93 Encounter for supervision of normal pregnancy, unspecified, third trimester (principal); Z3A.34 34 weeks gestation of pregnancy | CPT/HCPCS: 82728 ==

== ENCOUNTER 2025-01-24 10:45 | Outpatient (CLI) | payer MEDICAID, SELFPAY | END 2025-01-24 10:46 | disposition home or self-care (01) | LOC: NFLDREF 01-28 02:17 | PROVIDERS: PCP Registered Nurse; Referring Provider Registered Nurse; Visit Provider Obstetrics & Gynecology | DX: O35.EXX0 Maternal care for other (suspected) fetal abnormality and damage, fetal genitourinary anomalies, not applicable or unspecified (principal); Z3A.36 36 weeks gestation of pregnancy | CPT/HCPCS: 87081; 87653 ==

== ENCOUNTER 2025-01-26 08:54 | Outpatient (RCR) | payer MEDICAID, SELFPAY ==
[2025-01-26] MEDS: IRON DEXTRAN COMPLEX 25 MG in 0.9 % SODIUM CHLORIDE 100 ml 100 ML 402 MG IVPB (09:45)
[2025-01-26 10:06] VITALS: BP 96/62; RESP 16; TEMP 36.3; O2SAT 98
[2025-01-26] MEDS: IRON DEXTRAN COMPLEX 975 MG in 0.9 % SODIUM CHLORIDE 250 ml 250 ML 270 MG IVPB (10:54)
[2025-01-26 12:03] VITALS: BP 98/63; PULSE 98; RESP 16; TEMP 36.2; O2SAT 98
[2025-01-26 12:37] VITALS: BP 99/64; PULSE 80; RESP 16; TEMP 36.2; O2SAT 98
== END 2025-07-25 23:59 | disposition home or self-care (01) ==
LOC: CCIC 08:54
PROVIDERS: PCP Registered Nurse; Referring Provider Obstetrics & Gynecology; Visit Provider Clinical Nurse Specialist
DX: O99.013 Anemia complicating pregnancy, third trimester (principal); D50.9 Iron deficiency anemia, unspecified
CPT/HCPCS: 96365; T1013; J1750; J7050

== ENCOUNTER 2025-01-31 13:35 | Outpatient (CLI) | payer MEDICAID, SELFPAY | END 2025-01-31 13:36 | disposition home or self-care (01) | LOC: US 13:36 | PROVIDERS: PCP Registered Nurse; Visit Provider Obstetrics & Gynecology | DX: O35.EXX0 Maternal care for other (suspected) fetal abnormality and damage, fetal genitourinary anomalies, not applicable or unspecified (principal); Z3A.37 37 weeks gestation of pregnancy | CPT/HCPCS: 76816; T1013 ==

== ENCOUNTER 2025-02-13 11:43 | Outpatient (CLI) | payer MEDICAID, SELFPAY ==
[2025-02-13 12:12] VITALS: BP 104/62; PULSE 82; PULSE 84; TEMP 36.6; O2SAT 95
[2025-02-13 12:49] LABS: Amnisure Rom* Negative
--- NOTE | 2025-02-13 13:02 | CRLHL7_ITS ---
For Patients: As a result of the Cures Act, medical imaging exams and procedure reports are released immediately into your electronic medical record. You may view this report before your referring provider. If you have questions, please contact your health care provider. OB ULTRASOUND FOLLOW-UP/LIMITED, 02/13/2025 CLINICAL HISTORY: Check RADHA. COMPARISON: 01/31/2025, 12/27/2024, 11/15/2024. TECHNIQUE: Real time arredondo scale imaging of the fetus was performed. Transabdominal imaging performed. FINDINGS: IVONE by US: 02/20/2025. GA: 39 weeks 0 days. Gestation: Single. Cervix: Not visualized. Positioning: Vertex. Amniotic Fluid: 13.5 cm RADHA. 7.6 cm SDP. Placenta: Technique: TA. Placenta Position: Posterior. Dopplers: Heart Rate: 144 bpm. IMPRESSION: Amniotic fluid single deepest pocket 7.6 cm. RADHA 13.5 cm. Javon Villavicencio M.D. Diagnostic Radiologist [email or web address] Transcribed: 1:55 pm DW/Dictated by: Javon Villavicencio MD @ 02/13/2025 1:36:00 PM (Electronically Signed)
--- NOTE | 2025-02-13 14:01 | PC.OBNST ---
NST Note NST Note Start: 02/13/25 11:54 Freq: ONCE Status: Active Protocol: Document 02/13/25 11:54 MMS (Rec: 02/13/25 14:00 MMS No Response) NST Note 3 Para (# of births) 2 EDC 02/20/25 Gestational Age In 39 Weeks & 0 Days Weeks & Days Patient Presented Leaking fluid with Complaint(s) of Reactive Yes Appropriate for Yes Gestational Age JOSE Heredia,RN Date 02/13/25 Reactive Yes Appropriate for Yes Gestational Age JOSE Domínguez RN Date 02/13/25 OB NST charge Yes Complete NST Note Yes via Write Note The provider's electronic signature indicates the NST is reactive/appropriate for gestational age. *Note to provider: If an addendum is required, open the patient's chart and click on the note under the Nurse/Allied Health tab.
== END 2025-02-13 13:31 | disposition home or self-care (01) ==
LOC: OB OUT 11:44 → OB 11:45
PROVIDERS: PCP Registered Nurse; Visit Provider Obstetrics & Gynecology
DX: O47.1 False labor at or after 37 completed weeks of gestation (principal); Z3A.39 39 weeks gestation of pregnancy
CPT/HCPCS: 59025; 76815; 84112; G0463; T1013

== ENCOUNTER 2025-02-18 07:24 | Inpatient (IN) | payer MEDICAID, SELFPAY ==
[2025-02-18] VITALS (24 sets, daily range): BP systolic 92–120; BP diastolic 50–77; PULSE 75–96; RESP 16; TEMP 36.6–36.9; O2SAT 97–99; BMI 30.6
--- NOTE | 2025-02-18 08:28 | W.PM.LDBA ---
Subjective History of Present Illness Time Seen by Provider: 08:28 Date Seen: 02/18/25 Narrative: Naa is being admitted to Labor and Delivery for induction of labor, elective due to history of macrosomia also her spouse only have the weekend off of work so this is a social indication. She is a 29 year old at 39 and 5/7 weeks gestation. Her full history and physical was dictated by Dr. Moreland on 02/08/2025. Please see this for details. She is a Setswana speaker and a sample paster was available at the time of admission for this visit. She reports that she started having nonpainful contractions yesterday that have continued overnight. She is hoping that we can progress to Pitocin and AROM rather than starting with cervical ripening as result of the contractions. No leaking fluid or vaginal bleeding. Notes that her baby has been moving but has slightly decreased the amount of movement since she started having contractions yesterday Specific Issues/Plans G 3 P 2001 Partner (spouse): Yunier Amaodrmukesh Yun. Sons: Yannick Willingham. Baby: Boy! [place] Setswana-speaking H&P: By Dr. Moreland on 02/08/25 # Anemia at 28wks: hgb 9.8 Start OTC Ferrous sulfate QOD Recheck hgb at 34wks: 9.3 Iron infusion ordered 01/12/25 # History of macrosomic babies at 40w and 40w3d. 12.8 lb and 10.1 lb. Vaginal x 2. Episiotomy x 2. Denies history of gestational diabetes. Delivered in [place], do not have records. Hemoglobin A1c 5.5% 1hr GTT 12/01/24:100 Consider third-trimester growth ultrasound Desires elective IOL on 02/16/25 - ripening with cook on 02/15 #On FAS: L kidney malrotated, Bilateral renal pelvis dilation: L 8mm, R 4mm [facility] referral scheduled on 11/15/24 [facility] 11/15/24 - Mild bilateral pyeletasis (UTD A1) is noted today and the left kidney appears inferiorly displaced lower in the renal fossa. 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 F/u with MFM at 36 weeks Recommended referral to pediatric urology at this time (during ) to arrange for consultation to discuss follow up. Also recommend notification of baby's prevention coordinator regarding this finding. US is typically indicated within the first several weeks of life and thus should be arranged prenatally. Delivery is anticipated per routine obstetric indication at [facility] at this time. # Transportation issues. #HepB non immune [x] vaccine given 09/13 - just 1x booster needed as pt reports she received the series as a child # 09/04/2024 L/S cholecystectomy at 15w6d by Dr. Olivier # Considering sterilization Federal tubal consent signed 12/01/24 Imagin. 10/05/24: Single, live intrauterine . Variable presentation. Post placenta w/o previa. Cervix 4.1cm. Normal anatomy with the exception of malrotation of the L kidney and bilateral pelvis dilation: L 8mm, R 4mm. MFM referral. 12/27/24: repeat US with MFM: Resolved right UTDA1. However there is evidence of persistent malposition of the left kidney; it appears within the renal fossa however significantly rotated 90 degrees. There is persistent UTDA1 of the left kidney with the left renal pelvis measuring 7.9 mm. EFW 62.7%, AC 66.8%. SDP 5.8 cm. Vaccinations: Flu: Declined Covid: Declined Tdap: 12/15/24 GBS Negative 32 week mental health: PHQ-9 1; CLINT-7 0 Last pap 08/23/24: WNL, HPV(-) OB - Problem Based A/P Additional Plan (1) Encounter for induction of labor: Status: Acute Plan 1. Pitocin per induction protocol. 2. GBS status: Negative she does not require prophylactic antibiotics. 3. Blood type A positive 4. The patient has a history of anemia and with her last hemoglobin on 01/12/25: 9.3. She underwent iron infusions with her last iron infusion on 01/26/2025. Planning active management of the 3rd stage of labor to prevent hemorrhage. 5. She is a candidate for all types of analgesia for labor. She is undecided what she would like but has had unmedicated deliveries in the past. OB Exam Physical Exam Vital signs: Temp Pulse Resp BP Pulse Ox 97.9 F 83 16 104/65 99 02/18/25 07:38 02/18/25 07:38 02/18/25 07:38 02/18/25 07:38 02/18/25 07:36 Narrative: GENERAL APPEARANCE: Pleasant, , well-groomed woman in no acute distress. VITAL SIGNS: as noted in nursing notes HEAD: Normocephalic, atraumatic. THYROID: no masses, nodularity, tenderness or enlargement. LUNGS: Clear to auscultation bilaterally without wheezes, rales or rhonchi. HEART: Regular rate and rhythm with normal S1 and S2. No gallop, rub or murmur. ABDOMEN: Gravid. Soft, nontender, nondistended, with normal bowels sounds throughout. EFM: Baseline: 135bpm. Accelerations: Present. Decelerations: Absent. Moderate variability. Reactive. Category 1. SVE: 3 cm/ 60 %/ -1/medium consistency/midposition. Buck score: 7 EXTREMITIES: No cyanosis, clubbing, or edema. No varicosities. NEUROLOGIC: Normal gait and balance. Normal deep tendon reflexes at bilateral patella 2+/2, equal without clonus. PSYCHIATRIC: alert and oriented x3. Normal speech pattern, eye contact and affect. SKIN: Warm, dry, and well perfused. Good turgor. No lesions, nodules or rashes.
[2025-02-18] MEDS: LACTATED RINGERS 1000 ML 1,000 ML 125 ML IV (08:43)
[2025-02-18 08:46] LABS: Hematocrit 32.6 % (33.0-51.0); Hemoglobin* 10.4 gm/dL (12.0-16.0); Immature Granulocytes Abs Auto 0.06 K/uL (0.00-0.30); Immature Granulocytes Pct Auto 1.0 %; Lymphocytes Absolute Auto 1.17 K/uL (0.90-2.90); Mean Corpuscular HGB Conc 32 gm/dL (32-36); Mean Corpuscular Hemoglobin 27 pg (26-34); Mean Corpuscular Volume 85 fL (80-100); RDW Coefficient of Variation % 24.0 % (11.5-15.5); Red Blood Count 3.85 m/uL (4.00-5.20); White Blood Count* 5.74 K/uL (4.50-11.00)
[2025-02-18] MEDS: OXYTOCIN 30 unit/500 ML in NS 30 UNIT/500 ML BAG IVPB (08:52)
[2025-02-18 09:03] LABS: Slide Review Reflex Yes
[2025-02-18 09:41] LABS: Slide Review Acceptable Review (Acceptable)
--- NOTE | 2025-02-18 11:08 | P.OBPN_ITS ---
Subjective Time Seen by Provider: 11:08 Date Seen: 02/18/25 Narrative: Subjective: The patient reports feeling more uncomfortable with contractions but not terribly painful. Pitocin: 7 milliunits/minute. A dining room attendant cafeteria was present for entire visit. Verbal consent obtained to perform artificial rupture of membranes. Vital signs: Per electronic medical record. EFM: Baseline: 135 bpm, positive accelerations, negative decelerations, moderate variability, reactive. Category 1. [place]: Contractions every 2-3 minutes. SVE: 3 cm/80 %/-1. AROM: Small amount of clear fluid Assessment: 29-year-old 3 para 2 at 39 weeks 5 days gestation undergoing induction of labor. Plan: 1. Continue Pitocin per labor induction protocol. 2. Planning on having an unmedicated but is a candidate for all forms of analgesia should she change her mind. Objective Vital Signs: Last Vital Signs Temp 97.8 F 02/18/25 10:55 Pulse 81 02/18/25 10:54 Resp 16 02/18/25 10:55 BP 116/77 02/18/25 10:54 Pulse Ox 99 02/18/25 07:36
[2025-02-18] MEDS: LIDOCAINE 1 % PF 30 ML INJECTION (14:58)
--- NOTE | 2025-02-18 15:29 | W.PM.OBVAGDE ---
OB Procedure Vag Delivery Mother Details Mother Details: Naa is a 29 year-old G 3 P 2001 now 3 admitted on 02/18/2025 at 7:30 a.m. at 39 Weeks, []Days gestation for induction of labor, elective. AROM occurred at 11:01 a.m. on 02/18/2025 with clear fluid. Labor Analgesia: None Pitocin: Yes: Discontinued in the 2nd stage Labor onset: 02/18/2025 at 11:01 a.m.. Complete: 02/18/2025 at 2:40 p.m.. Pushin02/18/2025 at 2:19 p.m. Pushing involuntarily before cervix was completely dilated. heart tones during second stage were: The patient began pushing at 2:19 p.m. involuntarily with contractions prior to her cervix being fully dilated. During this time it was difficult to monitor the heart tones and was noted that the heart rate was having decelerations to as low as 70s during contractions. Verbal consent obtained to place a scalp electrode and then the patient was placed in hands and knees position. Once the scalp electrode was placed and the patient in hands and knees the heart rate was noted to have moderate variability with some variable decelerations to the 90s with more than 50% of the contractions there was immediate return of the heart rate to the baseline. At 2:37 p.m. there was noted to be a rim of cervix remaining and verbal consent obtained to do a manual reduction of this small amount of cervix to preventcervical injury. The cervix was manually reduced with her next push and the cervix became completely dilated. The patient then pushed for 3 additional minutes before delivery. At 1443 a viable male infant delivered in vertex OA presentation over first-degree perineal laceration via normal spontaneous vaginal delivery. The was placed on maternal abdomen. Cord was clamped and cut after an approximately 5 minute delay second delay. Nose and mouth were bulb suctioned. Infant weight pending. 8 at 1 minute and 9 at 5 minutes. Shoulder dystocia: No. Nuchal cord: No Placenta delivered spontaneously at 3:03 p.m. with a 3 vessel cord. Laceration(s): First-degree perineal. Repaired using 4-0 Vicryl suture in a running manner. Blood loss: 175 mL. Blood loss measurement type: Quantitative Sponge and needles counts are correct. Specimen: None Mother and were stable after delivery. 's name: [place] The patient is planning on breast feeding. : 3 Para: 2 Weeks Gestation: 39 Admission Date: 02/18/25 Additional Details Amniotic Membrane Status: AROM Amniotic Membrane Rupture Date: 02/18/25 Amniotic Membrane Rupture Time: 11:00 Amniotic Membrane Fluid Description: Clear Analgesia/Anesthesia Type: None Waterbirth: No Pitcoin: Yes Intrapartal Events: None Induction Method: per pitocin protocol and AROM Labor Onset: 11:01 Complete: 14:40 Pushin:19 (Involuntary pushing prior to her cervix being completely dilated.) Delivery Details Delivery Date: 02/18/25 Delivery Time: 14:43 Route of delivery: Gender: Male Infant Viability: Alive; Heart Rate Present Position at Delivery: OA Delivery Details: Delivered via [spontaneous] vaginal delivery. Infant was placed on maternal abdomen.? Cord was clamped and cut after a 30-60 second delay. Nose and mouth were bulb suctioned.? weight pending. 1 Minute Interval Total Score: 8 5 Minute Interval Total Score: 9 Additional Details Shoulder Dystocia: No Placenta Delivery Time: 15:03 Placental Delivery Description: Spontaneous Delivery repair: Vicryl Procedure Done: Global Blood Loss: 175 Laceration: Perineal - 1st Degree Blood Loss Measurement Type: QBL Bakri Used: No Sponge/Need Count Correct: Yes Cord Vessel Description: 3 Vessels Event Summary Status: Mother and infant were stable after delivery. Disposition: floor
[2025-02-18] MEDS: ACETAMINOPHEN 500 MG TABLET 1000 MG PO (16:41)
[2025-02-19 00:31] VITALS: BP 95/53; PULSE 96; RESP 16; TEMP 37.1; O2SAT 97
[2025-02-19 03:49] VITALS: BP 100/64; PULSE 71; RESP 16; TEMP 36.6; O2SAT 97
[2025-02-19 06:16] LABS: Hemoglobin* 10.5 gm/dL (12.0-16.0)
[2025-02-19 07:51] VITALS: BP 96/62; PULSE 81; TEMP 36.6; O2SAT 98
--- NOTE | 2025-02-19 07:58 | P.DS_ITS ---
DS: Providers Provider Date Seen: 02/19/25 Date of admission: 02/18/25 07:24 Primary care physician: Radha Sanz CNP Admitting Clinician: Lety Rodriguez MD Consults: 02/18/25 07:54 Consult to Kennel Attendant [CONS] Routine Comment: Reason for Consult:: Police Radio Dispatcher Needed 02/18/25 08:09 Consult to Kennel Attendant [CONS] Routine Comment: lack of trasportation Reason for Consult:: Social Service Consult Attending Physician on discharge: Juan SHANE Date of Discharge: 02/19/25 DS: Diagnosis Discharge Diagnosis (1) (normal spontaneous vaginal delivery): Status: Acute (2) Encounter for care and examination of lactating mother: Status: Acute Exam Narrative: Exam Narrative: GENERAL APPEARANCE:? normal affect, alert, no distress MOOD:? appropriate CHEST:? clear to auscultation HEART:? regular rate and rhythm ABDOMEN:? soft, non-tender the uterine fundus is At 1 finger breadth below Umbilicus, Midline and is appropriate for the stage of recovery. PERINEUM:? mild edema of the perineum, there is a Perineal Laceration,? with no significant erythema, well approximated. EXTREMITIES:? normal and minimal edema Const: Vital Signs, click to edit/add: Vital Signs - 24 hr 02/18/25 08:54 02/18/25 08:55 02/18/25 09:54 Temperature 98 F Pulse Rate 87 76 Pulse Rate [Pulse Oximeter] Respiratory Rate 16 Blood Pressure 111/69 107/67 Blood Pressure [Ri ght Arm] Pulse Oximetry Oxygen Delivery Mo thod 02/18/25 10:54 02/18/25 10:55 02/18/25 12:10 Temperature 97.8 F 98.1 F Pulse Rate 81 77 Pulse Rate [Pulse Oximeter] Respiratory Rate 16 16 Blood Pressure 116/77 108/68 Blood Pressure [Ri ght Arm] Pulse Oximetry Oxygen Delivery Mo thod 02/18/25 13:17 02/18/25 13:40 02/18/25 14:31 Temperature 97.9 F Pulse Rate 79 Pulse Rate [Pulse Oximeter] Respiratory Rate 16 Blood Pressure 120/73 Blood Pressure [Ri ght Arm] Pulse Oximetry [facility] 02/[facility] 15:03 02/18/25 15:04 02/18/25 15:18 Temperature Pulse Rate 83 Pulse Rate [Pulse Oximeter] Respiratory Rate 16 16 Blood Pressure 101/55 L Blood Pressure [Ri ght Arm] Pulse Oximetry [facility] 02/18/25 15:19 02/18/25 15:35 02/18/25 15:36 Temperature 98.1 F Pulse Rate 82 80 Pulse Rate [Pulse Oximeter] Respiratory Rate Blood Pressure 104/64 105/52 L Blood Pressure [Ri ght Arm] Pulse Oximetry [facility] 02/18/25 15:48 02/18/25 15:48 02/18/25 16:04 Temperature Pulse Rate 80 78 Pulse Rate [Pulse Oximeter] Respiratory Rate 16 Blood Pressure 94/50 L 97/54 L Blood Pressure [Ri ght Arm] Pulse Oximetry [facility] 02/18/25 16:04 02/18/25 16:18 02/18/25 16:18 Temperature Pulse Rate 77 Pulse Rate [Pulse Oximeter] Respiratory Rate 16 16 Blood Pressure 94/52 L Blood Pressure [Ri ght Arm] Pulse Oximetry [facility] 02/18/25 16:33 02/18/25 16:33 02/18/25 16:49 Temperature Pulse Rate 75 96 Pulse Rate [Pulse Oximeter] Respiratory Rate 16 Blood Pressure 95/56 L 99/56 L Blood Pressure [Ri ght Arm] Pulse Oximetry [facility] 02/18/25 16:49 02/18/25 17:04 02/18/25 17:04 Temperature Pulse Rate 84 Pulse Rate [Pulse Oximeter] Respiratory Rate 16 16 Blood Pressure 93/55 L Blood Pressure [Ri ght Arm] Pulse Oximetry [facility] 02/18/25 20:28 02/19/25 00:31 02/19/25 03:49 Temperature 98.5 F 98.8 F 97.8 F Pulse Rate Pulse Rate [Pulse Oximeter] 75 96 71 Respiratory Rate 16 16 16 Blood Pressure Blood Pressure [Ri ght Arm] 92/56 L 95/53 L 100/64 Pulse Oximetry 97 97 97 [facility] Room Air Room Air 02/19/25 07:51 Temperature 97.8 F Pulse Rate Pulse Rate [Pulse Oximeter] 81 Respiratory Rate Blood Pressure Blood Pressure [Ri ght Arm] 96/62 Pulse Oximetry 98 [facility] OB - DS: Summary Hospital Course Hospital Course: Naa is a 29 y.o. G 3 P 3003 who was admitted to L & D for elective induction of labor.? She had a NVD that was uncomplicated. The patient feels well.? The pain is well controlled with current medications.? She has no new complaints.? She is breast feeding and reports things are going well. the patient has done well.? Vitals have been stable.? She has remained afebrile.? Has a good appetite, is tolerating a general diet.? She is voiding without difficulty.? She is passing gas and has not had a bowel movement.? She is ambulating and denies any dizziness.? Has small amount of rubra lochia. She is planning condoms for prevention since she and her decided against a salpingectomy.? ?? Problems: none? ?? plan:? Discharge home with baby.? Follow up in 2 weeks and 6 weeks.? , may see if needed? Hgb 10.5. ? Abdominal binder to be given to patient for abdominal support and to promote core healing. ? Peripartum Data Infant delivery method: Vaginal Laceration description: Perineal - 1st Degree (repaired) Episiotomy description: None Procedures: Procedures Operation Date: 02/19/25 11:15 <No data on this case meets the specified criteria> complications: none [place] Infant Gender: Male Discharge Plan: Home Status at Discharge Overall status at discharge: patient is progressing back to baseline Time Spent with Patient Time attestation: Total time spent providing and/or coordinating discharge services: Time spent: Less than 30 minutes Discharge Plan Discharge Disposition: Home, Self-Care Date of Admission: 02/18/25 07:24 Attending Provider on Discharge: Dilcia Lane Consulting Providers: Lety Rodriguez Primary Care Provider: Radha Sanz Condition: Stable Anticipated Discharge Date/Time: 02/19/25 16:00 Discharge Medications: New acetaminophen 500 mg Tablet 1,000 mg PO Q6H PRNQty: 60 0RF docusate sodium 100 mg Capsule 100 mg PO BID PRN (Reason: constipation) Qty: 60 0RF ibuprofen 600 mg Tablet 600 mg PO Q6H PRNQty: 60 0RF Continued vit 1-iron [id number] 90-1-50 mg tablet 1 tab PO DAILY Discharge Orders: Discharge Order (Routine); Ordered 02/19/25 Ordered By: Dilcia Lane Patient Education: OB Over the Counter Medication Information, OB Vaginal/Breast Feeding Additional Instructions: Discharge instructions were reviewed with the patient including signs and symptoms of infection and home going medications Nothing vaginally for 6 weeks: no tampons or intercourse Do not drive while taking narcotic pain medication(s) Off Work or School for 6 weeks Symptoms to report to doctor: * Bleeding that saturates more than one pad per hour * Passing clots larger than the size of a golf ball * Pain not relieved by prescribed medication * Fever above 100.4 degrees Fahrenheit * A foul vaginal odor * Difficulty in emotions, mood, and functions * Thoughts of hurting yourself and/or * Painful, reddened area in your breast * Any drainage, redness, or tenderness in your IV/epidural site * Severe headache that doesn't improve after taking medications * Changes in vision, including temporary loss of vision, blurred vision, and/or light sensitivity * Upper abdominal pain (usually under ribs on the right side) * Decrease in urination or painful, frequent urinating * Chest pain * Shortness of breath * Tenderness or pain with redness and/swelling in the calf(s) of your leg 2-week visit: discuss feeding concerns, review control options and screen for anxiety/depression. 6-week visit for an annual exam. consultation services are available to all mothers and babies for the first year after delivery.? To make an appointment, please call [phone]. Activity Level: Activity as Tolerated Discharge Diet: Regular Follow Up Appointments: [facility] [Provider Group] Forms: [employer] Info Instructions
[2025-02-19] MEDS: DOCUSATE SODIUM 100 MG CAPSULE PO (08:06)
[2025-02-19 12:05] VITALS: BP 101/66; PULSE 74; RESP 16; TEMP 36.4; O2SAT 98
--- NOTE | 2025-02-19 13:31 | PC.SOCIAL ---
Social Service Consult: SW met with patient using [employer] slate roofer helper - [place] [id number]. Patient reports she is doing well and has no concerns or questions at this time. SW inquired about transportation and patient was agreeable to discussing this. SW provided information for [facility] for [facility] and also the information for free medical rides through her insurance. Patient had no questions about this information. SW to assist if other needs arise.
== END 2025-02-19 17:31 | disposition home or self-care (01) | DRG 807 ==
PROVIDERS: Admitting Provider Obstetrics & Gynecology; PCP Registered Nurse; Visit Provider Obstetrics & Gynecology
DX: O99.02 Anemia complicating childbirth (principal); Z37.0 Single live birth; D64.9 Anemia, unspecified; O76 Abnormality in fetal heart rate and rhythm complicating labor and delivery; O70.0 First degree perineal laceration during delivery; Z59.82 Transportation insecurity; Z60.3 Acculturation difficulty; Z28.39 Other underimmunization status; Z3A.39 39 weeks gestation of pregnancy
CPT/HCPCS: 36415; 85018; 85025; 86592; 86850; 86900; 86901; T1013; A9270; J2003; J7120